=== PATIENT | female | born 1950 | race Caucasian/White ===

== ENCOUNTER 2020-02-01 11:05 | Emergency (ER) | payer MEDICARE, SELFPAY ==
--- NOTE | ~2020-02-01 | XR_ITS ---
EXAMINATION: XR lumbar spine min 4V DATE: 02/01/2020 12:20 INDICATION: Low back pain TECHNIQUE: Anteroposterior, lateral, and bilateral oblique views of the lumbar spine, and cone-down l ateral view of the lumbosacral junction were obtained. COMPARISON: None. FINDINGS: There is no fracture, dislocation, or subluxation. The vertebral body heights and alignment are normal. Minimal loss of intervertebral disc space height is present throughout the lumbar spine. Small degenerative osteophytes project from the anterior endplates of multiple vertebral bodies. Puneet cified atherosclerosis is noted. There is a moderate volume of colonic stool. Mild facet osteoarthrit is is noted. IMPRESSION: 1. Mild lumbar spondylosis without acute findings. Reviewed, dictated and finalized at location A.
[2020-02-01 11:14] VITALS: BP 147/66; PULSE 68; RESP 16; TEMP 36; O2SAT 100
[2020-02-01] MEDS: KETOROLAC (*BKC) 60 MG/2 ML VIAL 15 MG IM (12:14)
[2020-02-01] MEDS: diazePAM 5 MG TABLET PO (12:14)
--- NOTE | 2020-02-01 13:30 | ED.BACK ---
HPI - Back Pain/Injury General Chief Complaint: Back Pain/Injury <Elliott Mccain PA-C - Last Filed: 02/01/20 13:34> Stated Complaint: back pain yesterday <Elliott Mccain PA-C - Last Filed: 02/01/20 13:34> Time Seen by Provider: 02/01/20 11:25 <Elliott Mccain PA-C - Last Filed: 02/01/20 13:34> Source: patient and family <Elliott Mccain PA-C - Last Filed: 02/01/20 13:34> Mode of arrival: ambulatory <BRIE Nicholson Last Filed: 02/01/20 13:34> Limitations: no limitations <Elliott Mccain PA-C - Last Filed: 02/01/20 13:34> History of Present Illness HPI Narrative: Patient is a 69-year-old female who presents emergency department for evaluation of lower lumbar back pain across the lumbar region that began after leaning over to put on her pants today denies other injury or trauma or similar occurrence in the past has not taken anything for symptoms presents per private vehicle in no distress with normal gait denies any recent illness or other complaints <Elliott Mccain PA-C - Last Filed: 02/01/20 13:34> Related Data Allergies/Adverse Reactions: Allergies Allergy/AdvReac Type Severity Reaction Status Date / Time codeine Allergy Mild Flushing Verified 02/01/20 11:17 <Elliott Mccain PA-C - Last Filed: 02/01/20 13:34> Review of Systems Review of Systems: All systems reviewed & are unremarkable except as noted in HPI and below <Elliott Mccain PA-C - Last Filed: 02/01/20 13:34> PMFSH Past Medical History Medical History: Medical History (Updated 02/01/20 @ 13:32 by Elliott Mccain PA-C) Diabetes mellitus <Elliott Mccain PA-C - Last Filed: 02/01/20 13:34> Exam Narrative: Exam Narrative: GENERAL: Well-appearing, well-nourished, and in no acute distress. HEAD: Normocephalic, atraumatic. EYES: PERRLA and EOMI. ENT: Nares clear, no rhinorrhea or epistaxis. Mucous membranes moist. CHEST: Clear to auscultation. No respiratory distress. No wheezes rales or rhonchi HEART: Regular rate and rhythm. No murmur heard. EXTREMITIES: Normal range of motion. No edema. Tenderness across the lumbar spine no deformities noted SKIN: Warm, dry, no rash. NEURO: No focal deficits. Alert and oriented x3. Cranial nerves II through XII grossly intact PSYCH: Normal mood and affect. <Elliott Mccain PA-C - Last Filed: 02/01/20 13:34> Course Course Emergency Course: Patient in the room in no distress aware of case findings treatment plan and diagnosis agreeing to follow-up as directed or to return if symptoms worsen or concerns <Elliott Mccain PA-C - Last Filed: 02/01/20 13:34> Vital Signs Vital signs: Vital Signs Temperature 36.0 C L 02/01/20 11:14 Pulse Rate 68 02/01/20 11:14 Respiratory Rate 16 02/01/20 11:14 Blood Pressure 147/66 H 02/01/20 11:14 Pulse Oximetry 100 02/01/20 11:14 Temperature 36.0 C L 02/01/20 11:14 Pulse Rate 68 02/01/20 11:14 Respiratory Rate 16 02/01/20 11:14 Blood Pressure 147/66 H 02/01/20 11:14 Pulse Oximetry 100 02/01/20 11:14 <Elliott Mccain PA-C - Last Filed: 02/01/20 13:34> Vital Signs Temperature 36.0 C L 02/01/20 11:14 Pulse Rate 68 02/01/20 11:14 Respiratory Rate 16 02/01/20 11:14 Blood Pressure 147/66 H 02/01/20 11:14 Pulse Oximetry 100 02/01/20 11:14 Temperature 36.0 C L 02/01/20 11:14 Pulse Rate 68 02/01/20 11:14 Respiratory Rate 16 02/01/20 11:14 Blood Pressure 147/66 H 02/01/20 11:14 Pulse Oximetry 100 02/01/20 11:14 <Louann Magdaleno MD - Last Filed: 02/01/20 13:58> MDM - Back Pain/Injury MDM Narrative Medical decision making narrative: Medications as needed and prescribed. Limit lifting and bending. You may apply heat or cold to the area as needed. Follow up with your doctor for further care. Contact your doctor or return to the emergency department if you develop problems with bladder or bowel func
== END 2020-02-01 15:30 | disposition home or self-care (01) ==
PROVIDERS: Emergency Provider Emergency Medicine; PCP Internal Medicine
DX: S39.012A Strain of muscle, fascia and tendon of lower back, initial encounter (principal); E11.9 Type 2 diabetes mellitus without complications; X50.9XXA Other and unspecified overexertion or strenuous movements or postures, initial encounter
CPT/HCPCS: 72110; 96372; 99283; A9270; J1885

== ENCOUNTER 2022-12-22 15:55 | Observation (INO) | payer BC, MEDICARE, SELFPAY ==
[2022-12-22] VITALS (8 sets, daily range): BP systolic 106–163; BP diastolic 64–93; PULSE 99–125; RESP 20–26; TEMP 36.3–36.8; O2SAT 100; BMI 25.8
--- NOTE | ~2022-12-22 | XR_ITS ---
EXAMINATION: XR chest 2V 12/22/2022 17:38 INDICATION: Shortness of breath, nausea, vomiting and diarrhea PROCEDURE: 2 view chest COMPARISON: 08/27/2008 FINDINGS: The lungs are clear. The cardiomediastinal silhouette is within normal limits. There are no pleural effusions. There is no pneumothorax suspected. IMPRESSION: 1: NO ACUTE CARDIOPULMONARY DISEASE. Reviewed, dictated and finalized at location A.
--- NOTE | 2022-12-22 16:50 | ECG_ITS ---
Measurements Intervals [place] Rate: 120 P: 54 IN: 159 QRS: -73 QRSD: 84 T: 67 QT: 364 QTc: 515 Interpretive Statements SINUS TACHYCARDIA RSR' IN V1 OR V2, PROBABLY NORMAL VARIANT DELAYED PRECORDIAL R/S TRANSITION ABNORMAL ECG NO PREVIOUS ECG AVAILABLE FOR COMPARISON Electronically Signed On 12-22-2022 20:14:47 CDT by Guerrero Weller D.O.
[2022-12-22 17:08] LABS: Basophils Absolute Auto 0.1 K/mm3 (0.0-0.1); Basophils Percent Auto 0.8 % (0.2-1.2); Eosinophils Absolute Auto 0.1 K/mm3 (0-0.3); Eosinophils Percent Auto 1.9 % (0-4.4); Hematocrit 46.9 % (37.0-47.0); Hemoglobin 15.6 g/dL (12.0-15.0); Immature Granulocyte Absolute 0.03 K/mm3 (0.00-0.031); Immature Granulocyte Percent A 0.5 % (0-0.5); Lymphocytes Absolute Auto 1.03 K/mm3 (0.9-3.2); Lymphocytes Percent Auto 16.6 % (18.3-44.2); Mean Corpuscular HGB Conc 33.3 g/dl (32-36); Mean Corpuscular Hemoglobin 27.5 pg (26-34); Mean Corpuscular Volume 82.7 fl (80-100); Mean Platelet Volume 9.4 fl (7.4-10.4); Monocytes Absolute Auto 0.9 K/mm3 (0.1-0.6); Monocytes Percent Auto 13.7 % (2.6-8.5); Neutrophils Absolute Auto 4.1 K/mm3 (1.3-6.7); Neutrophils Percent Auto 66.5 % (45.5-73.1); Platelet Count Result 293 k/mm3 (150-375); Red Blood Count 5.67 M/mm3 (4.2-5.4); Red Cell Distribution Width 13.2 % (11.5-14.5); White Blood Count 6.2 K/mm3 (4.5-10.0)
[2022-12-22 17:19] LABS: Alanine Aminotransferase 42 U/L (6-35); Alkaline Phosphatase 176 U/L (38-126); Anion Gap 20 mmol/L (8-16); Aspartate Amino Transferase 67 U/L (14-36); Bilirubin,Total 0.9 mg/dL (0.2-1.3); Blood Urea Nitrogen 33 mg/dL (7-17); Calcium 9.8 mg/dL (8.4-10.2); Carbon Dioxide 21 mmol/L (22-30); Chloride 90 mmol/L (98-107); Estimated CRCL calculation 24 ml/min; Estimated Glomerular Filt Rate 32; Glucose 216 mg/dL (65-110); Potassium 3.6 mmol/L (3.4-5.0); Sodium 131 mmol/L (137-145)
[2022-12-22 17:43] LABS: Influenza A QL RT-PCR Negative (Negative); Influenza B QL RT-PCR Negative (Negative); SARS-CoV-2 RNA PCR Positive (Negative)
[2022-12-22] MEDS: SODIUM CHLORIDE 0.9% IV 500 ML 999 ML IV CONT ×2 (18:52→19:54)
--- NOTE | 2022-12-22 18:53 | ED.URI ---
HPI - URI/Sore Throat General Chief Complaint: Upper Respiratory Infection Stated Complaint: I've been sick Time Seen by Provider: 12/22/22 18:21 Source: patient Mode of arrival: ambulatory Limitations: no limitations History of Present Illness HPI Narrative: This is a 72 year old female that presents to the ER for cold symptoms. Present over the last couple of days. Reports cough, congestion, shortness of breath, vomiting, and diarrhea. She is COVID vaccinated. Denies fever, chest pain, abdominal pain, or lower extremity edema. Related Data Allergies Allergy/AdvReac Type Severity Reaction Status Date / Time codeine Allergy Mild Flushing Verified 02/01/20 11:17 Review of Systems Review of Systems: CONSTITUTIONAL: Denies fever ENT: Reports rhinorrhea, congestion CARDIOVASCULAR: Denies chest pain, or edema. RESPIRATORY: Reports cough and dyspnea. GASTROINTESTINAL: Reports nausea, vomiting and diarrhea. Denies abdominal pain NEUROLOGIC: Reports generalized weakness. All systems reviewed & are unremarkable except as noted in HPI and below PMFSH Past Medical History Medical History (Updated 12/22/22 @ 20:59 by Nesha Pandya PA-C) Diabetes mellitus History of brain cancer Social History Social History (Updated 12/22/22 @ 19:09 by Nesha Pandya PA-C) Smoking status: Never smoker Exam Narrative: GENERAL: Well-appearing, well-nourished, and in no acute distress. HEAD: Normocephalic, atraumatic. EYES: EOMI. ENT: Nares clear, no rhinorrhea or epistaxis. Mucous membranes dry. Oropharynx without tonsillar hypertrophy exudate or other lesions. Bilateral TMs pearly boone non-bulging NECK: Supple. No adenopathy or masses. CHEST: Clear to auscultation. No respiratory distress. No wheezes rales or rhonchi HEART: Regular rate and rhythm. No murmur heard. Normal peripheral pulses. ABDOMEN: Soft, nontender, nondistended, normal active bowel sounds. EXTREMITIES: Normal range of motion. No edema. SKIN: Warm, dry, no rash. NEURO: No focal deficits. Alert and oriented x3. PSYCH: Normal mood and affect Course Course Emergency Course: Patient was updated on workup and agrees with admission for further management Consultations Consultation #1: Spoke with Dr. Blanco about patient and workup who accepts admission Date: 12/22/22 Vital Signs Vital signs: Vital Signs Temperature 98.3 F 12/22/22 16:48 Pulse Rate 123 H 12/22/22 16:48 Respiratory Rate 20 12/22/22 16:48 Blood Pressure 119/64 12/22/22 16:48 Pulse Oximetry 100 12/22/22 16:48 Oxygen Delivery Room Air 12/22/22 16:48 Temperature 98.3 F 12/22/22 16:48 Pulse Rate 100 12/22/22 20:48 Respiratory Rate 26 H 12/22/22 20:48 Blood Pressure 144/90 H 12/22/22 20:48 Pulse Oximetry 100 12/22/22 20:48 Oxygen Delivery Room Air 12/22/22 18:51 MDM - URI/Sore Throat MDM Narrative Medical decision making narrative: Patient presents to the emergency department for cold symptoms present over the last couple days. Reporting cough, shortness of breath, vomiting, and diarrhea. Patient found to be COVID positive. She is vaccinated. Tachycardic upon arrival, this normalized with IV fluid administration. Oxygen saturation is normal on room air. CBC shows hemoconcentration. Metabolic panel also shows evidence of dehydration and acute kidney injury. Chest x-ray without acute cardiopulmonary abnormality. EKG shows QT prolongation, no acute ST changes or arrhythmias noted. Patient was updated on workup. Will be admitted for further management. Spoke with hospitalist about the patient and workup who accepts admission Differential Diagnosis Differential diagnosis: Likely upper respiratory infection, viral infection, bronchitis, influenza and other (COVID, pneumonia, PE) Lab Data Attestation: I reviewed the patient's lab results. 12/22/22 16:59 12/22/22 16:59 Labs: Lab Results 12/22/22 12/22/22 0
[2022-12-22 19:20] LABS: CRP 1.8 mg/dL (<1.0); Lactate Dehydrogenase 176 U/L (120-246)
[2022-12-22 19:21] LABS: INR 0.9; Prothrombin Time 12.9 Seconds (11.1-14.7)
[2022-12-22 19:22] LABS: Partial Thromboplastin Time 26.8 SECONDS (22.3-36.8)
[2022-12-22 19:33] LABS: D Dimer < 0.27 ug/mL (<0.48); Procalcitonin 0.3 ng/mL
--- NOTE | 2022-12-22 20:03 | PM.IMHP ---
H&P: HPI History of Present Illness Date/Time: 12/22/22 20:03 Chief Complaint: Shortness of breath Narrative: This is a 72-year-old female with past medical history significant for type 2 diabetes mellitus, hypertension, dyslipidemia, depression. Patient presents to the emergency room due to 1 week of generalized malaise, shortness of breath, poor appetite, nausea vomiting and diarrhea. Patient was found to have a positive COVID. Preliminary workup was significant for creatinine of 1.6 sodium 130 chloride 90 BUN 33 CK 267 ferritin 319 AST/ ALT/ alk phos 67/40/176 respectively. EXAMINATION: XR chest 2V 12/22/2022 17:38 INDICATION: Shortness of breath, nausea, vomiting and diarrhea PROCEDURE:? 2 view chest COMPARISON: 08/27/2008 FINDINGS: The lungs are clear.? The cardiomediastinal silhouette is within normal limits.? There are no pleural effusions.? There is no pneumothorax suspected.? IMPRESSION: 1:? NO ACUTE CARDIOPULMONARY DISEASE. Patient is been placed in observation for further evaluation management and treatment. Review of Systems Review of Systems: Shortness of breath, nausea vomiting diarrhea generalized malaise poor appetite Constitutional: Constitutional: Denies chills, Reports fatigue, Denies fever(s), Reports lethargy, Reports malaise and Denies night sweats Eyes: Eyes: Denies change in vision ENT: Denies dysphagia, Denies vertigo, Denies dizziness and Denies odynophagia Cardiovascular: Cardiovascular: Denies chest pain, Denies lightheadedness, Denies radiating jaw, neck or arm pain, Denies palpitations and Reports dyspnea Respiratory: Respiratory: Denies chest congestion, Denies cough, Denies excessive phlegm production and Reports dyspnea on exertion Gastrointestinal: Gastrointestinal: Denies dyspepsia, Denies heartburn, Reports diarrhea, Reports nausea and Reports vomiting Genitourinary: Genitourinary: Denies dysuria Musculoskeletal: Musculoskeletal: Reports myalgias Integumentary/Breasts: Skin/Breast: Denies rash Neurologic: Denies focal weakness and Denies Sensory deficit (Neuro) Psychiatric: Psychiatric: Reports no additional psychiatric complaints and Reports as per HPI Endocrine: Endocrine: Denies cold intolerance, Denies excessive sweating, Denies fatigue, Denies heat intolerance, Denies polyphagia, Denies polyuria and Denies palpitations Hematologic/Lymphatic: Hematologic/Lymphatic: Reports no additional hematologic/lymphatic complaints and Reports as per HPI Allergic/Immunologic: Allergic/Immunologic: Reports no additional allergic/immunologic complaints and Reports as per HPI FOR[facility]LY [facility] Past Medical History Medical History (Updated 12/23/22 @ 02:07 by Bipin Blanco MD) Diabetes mellitus History of brain cancer Family History Family History (Updated 12/22/22 @ 21:53 by Jaylin Pennington RN) Son Thymus cancer Myocardial infarct Father Esophageal cancer Pancreatic cancer Mother Cancer Social History Social History (Updated 12/22/22 @ 19:09 by Nesha Pandya PA-C) Smoking status: Never smoker Alcohol intake: never Substance use: never Lack of Transportation: No Lack of Food: Never True Current Housing: I Have Housing Concerned About Future Housing: No Difficulty Paying Gas/Electric Bills: No Difficulty Paying for Meds: No Currently Unemployed: No Education: High School Diploma/GED Difficulty w/ Childcare or Family Care: No Spiritual care concerns: No Meds Home Medications and Allergies Home Medications Medication Instructions Recorded Confirmed Type dapagliflozin propanediol 10 mg 10 mg PO DAILY 12/22/22 12/22/22 History tablet glimepiride 1 mg tablet 0.5 mg PO DAILY 12/22/22 12/22/22 History hydrochlorothiazide 12.5 mg capsule 12.5 mg PO DAILY 12/22/22 12/22/22 History losartan 100 mg tablet 100 mg PO DAILY 12/22/22 12/22/22 History metformin 500 mg tablet 1,000 mg PO BID 12/22/22 12/22/22 History ros
--- NOTE | 2022-12-22 21:41 | ADMGEN ---
This patient, Perlita Luevano, was admitted to IMU Room 207-01. Patient/family oriented to hospital policies and general routines including ID bracelet, bed and alarms, visiting hours, pain management, procedures, bathroom and other care routines, personal items, smoking policy, room service/diet, and visiting hours. Information on how to activate the Rapid Response Team has been discussed. Patient/Family are encouraged to report perceived risks to care and to ask questions if they do not understand what they are told or what they should do.
[2022-12-22 21:50] LABS: Glucose Point of Care 139 mg/dl (65-105)
[2022-12-22 22:09] LABS: Creatine Kinase 267 U/L (30-135)
[2022-12-23] VITALS (9 sets, daily range): BP systolic 106–135; BP diastolic 62–76; PULSE 95–112; RESP 16–20; TEMP 36.4–36.8; O2SAT 93–100
[2022-12-23 04:28] LABS: Basophils Percent Auto 0.6 % (0.2-1.2); Eosinophils Percent Auto 0.2 % (0-4.4); Hematocrit 41.3 % (37.0-47.0); Hemoglobin 13.6 g/dL (12.0-15.0); Immature Granulocyte Absolute 0.01 K/mm3 (0.00-0.031); Immature Granulocyte Percent A 0.2 % (0-0.5); Lymphocytes Absolute Auto 0.97 K/mm3 (0.9-3.2); Lymphocytes Percent Auto 20.4 % (18.3-44.2); Mean Corpuscular HGB Conc 32.9 g/dl (32-36); Mean Corpuscular Hemoglobin 27.4 pg (26-34); Mean Corpuscular Volume 83.1 fl (80-100); Mean Platelet Volume 9.6 fl (7.4-10.4); Monocytes Absolute Auto 0.8 K/mm3 (0.1-0.6); Monocytes Percent Auto 16.8 % (2.6-8.5); Neutrophils Absolute Auto 2.9 K/mm3 (1.3-6.7); Neutrophils Percent Auto 61.8 % (45.5-73.1); Platelet Count Result 224 k/mm3 (150-375); Red Blood Count 4.97 M/mm3 (4.2-5.4); White Blood Count 4.8 K/mm3 (4.5-10.0)
[2022-12-23 04:44] LABS: Anion Gap 9 mmol/L (8-16); Blood Urea Nitrogen 30 mg/dL (7-17); Calcium 8.9 mg/dL (8.4-10.2); Carbon Dioxide 25 mmol/L (22-30); Chloride 94 mmol/L (98-107); Estimated CRCL calculation 30 ml/min; Estimated Glomerular Filt Rate 40; Glucose 178 mg/dL (65-110); Potassium 3.4 mmol/L (3.4-5.0); Sodium 128 mmol/L (137-145)
[2022-12-23 08:05] LABS: Glucose Point of Care 187 mg/dl (65-105)
[2022-12-23] MEDS: ENOXAPARIN 30 MG/0.3 ML SYRINGE SUB-Q (10:37)
--- NOTE | 2022-12-23 11:30 | PM.IMPN ---
Progress Note: A&P Assessment and Plan (1) COVID-19: Code(s): U07.1 - COVID-19 Status: Acute Assessment and Plan: Patient placed in IMU Supportive care Continue to monitor On room air (2) QT prolongation: Code(s): R94.31 - Abnormal electrocardiogram [ECG] [EKG] Status: Acute Assessment and Plan: Continue to monitor Holding venlafaxine (3) DESTINI (acute kidney injury): Code(s): N17.9 - Acute kidney failure, unspecified Status: Acute Assessment and Plan: Likely to be pre renal azotemia Holding hydrochlorothiazide (4) T2DM (type 2 diabetes mellitus): Code(s): E11.9 - Type 2 diabetes mellitus without complications Status: Acute Assessment and Plan: Holding metformin Holding glimepiride Holding dapaglifozin Insulin sliding scale as needed Subjective Date/time seen: 12/23/22 11:30 Interval history: No new complaints Exam Narrative: Patient is laying in a stretcher Const: General: comfortable, no acute distress, well developed, alert, awake, average body habitus and other (Well-appearing) Nutritional Appearance: average body habitus Orientation/consciousness: patient oriented x3 HENMT: Head: normal to inspection, normocephalic and atraumatic Ears: hearing grossly normal bilaterally Face/Nose/Sinus: normal facial exam Face and sinus: normal facial exam Eyes: General: appearance normal, both eyes and all related structures Pupils: Equal, round and reactive pupils present EOM: EOMs intact bilaterally Neck: Neck: full ROM, no lymphadenopathy and no JVD Thyroid: thyroid normal Lymphatic: no lymphadenopathy noted Resp: Effort & Inspection: normal respiratory effort and able to speak in complete sentences Auscultation: clear to auscultation bilaterally Cardio: Jugular venous distension: no JVD Rate: regular rate Rhythm: regular rhythm Heart sounds: S1 normal heart sound present and S2 normal heart sound present : General: Yes deferred Skin: Rashes: no rashes Wounds: no wounds Neuro: General: patient oriented x3 and CN's II-XI intact bilaterally Cranial nerves: Yes CN's II-XII intact bilaterally and Yes Equal, round and reactive pupils present Cognition (Neuro): normal cognition Speech: normal speech Gait exam (Neuro): Normal gait present Motor exam (neuro): 5/5 motor strength present throughout Sensory Exam: No Sensory deficit (Neuro) Extrem: General: normal to inspection, full ROM, no joint enlargement and no pedal edema Objective Data Vital Signs Vital Signs: Vital Signs - 24 hr 12/22/22 16:48 12/22/22 17:47 12/22/22 18:40 Temperature 98.3 F Pulse Rate 123 H 125 H Respiratory Rate 20 Blood Pressure 119/64 106/65 Pulse Oximetry 100 100 Oxygen Delivery Room Air Room Air 12/22/22 18:51 12/22/22 20:48 12/22/22 21:20 Temperature Pulse Rate 119 H 100 99 Respiratory Rate 25 H 26 H 20 Blood Pressure 118/74 144/90 H 163/93 H Pulse Oximetry 100 100 100 Oxygen Delivery Room Air 12/22/22 21:37 12/22/22 22:00 12/22/22 22:00 Temperature 97.3 F L Pulse Rate 106 H 101 H Respiratory Rate 20 Blood Pressure 145/80 H Pulse Oximetry 100 100 Oxygen Delivery Room Air 12/22/22 23:47 12/23/22 00:00 12/23/22 02:00 Temperature 97.6 F Pulse Rate 99 95 106 H Respiratory Rate 20 Blood Pressure 152/64 H Pulse Oximetry 100 Oxygen Delivery 12/23/22 00:00 12/23/22 04:00 12/23/22 04:00 Temperature Pulse Rate 101 H Respiratory Rate Blood Pressure Pulse Oximetry 100 100 Oxygen Delivery Room Air Room Air 12/23/22 04:00 12/23/22 06:00 12/23/22 08:00 Temperature 97.6 F 98.2 F Pulse Rate 106 H 103 H 107 H Respiratory Rate 20 16 Blood Pressure 135/76 121/71 Pulse Oximetry 95 94 Oxygen Delivery Intake/Output Intake/Output: Intake & Output 12/20/22 12/21/22 12/22/22 12/23/22 23:59 23:59 23:59 23:59 Intake Total 1000 400 Output Total 700 Ba
[2022-12-23 13:01] LABS: Glucose Point of Care 288 mg/dl (65-105)
[2022-12-23 16:40] LABS: Glucose Point of Care 172 mg/dl (65-105)
[2022-12-23] MEDS: VENLAFAXINE HCL XR 75 MG CAP.ER.24H PO (17:31)
[2022-12-24] VITALS: BP 110/72; PULSE 92; RESP 20; TEMP 36.5; O2SAT 100
[2022-12-24 00:10] LABS: Glucose Point of Care 177 mg/dl (65-105)
[2022-12-24 04:00] VITALS: BP 121/73; PULSE 102; RESP 20; TEMP 36.4; O2SAT 91
[2022-12-24 08:18] LABS: Glucose Point of Care 205 mg/dl (65-105)
[2022-12-24 08:53] LABS: Anion Gap 10 mmol/L (8-16); Blood Urea Nitrogen 21 mg/dL (7-17); Carbon Dioxide 27 mmol/L (22-30); Chloride 93 mmol/L (98-107); Estimated CRCL calculation 35 ml/min; Estimated Glomerular Filt Rate 49; Glucose 189 mg/dL (65-110); Potassium 3.1 mmol/L (3.4-5.0); Sodium 130 mmol/L (137-145)
[2022-12-24] MEDS: VENLAFAXINE HCL XR 75 MG CAP.ER.24H PO (09:44)
[2022-12-24] MEDS: ENOXAPARIN 30 MG/0.3 ML SYRINGE SUB-Q (09:44)
--- NOTE | 2022-12-24 11:28 | PM.DS ---
DS: Admitting Diagnosis Discharge Date December 24, 2022 Admitting Diagnosis COVID DS: Discharge Diagnosis Discharge Diagnosis (1) COVID-19: Code(s): U07.1 - COVID-19 Status: Acute Assessment and Plan: Patient placed in IMU Supportive care Continue to monitor On room air (2) QT prolongation: Code(s): R94.31 - Abnormal electrocardiogram [ECG] [EKG] Status: Acute Assessment and Plan: Continue to monitor Holding venlafaxine (3) DESTINI (acute kidney injury): Code(s): N17.9 - Acute kidney failure, unspecified Status: Acute Assessment and Plan: Likely to be pre renal azotemia Holding hydrochlorothiazide (4) T2DM (type 2 diabetes mellitus): Code(s): E11.9 - Type 2 diabetes mellitus without complications Status: Acute Assessment and Plan: Holding metformin Holding glimepiride Holding dapaglifozin Insulin sliding scale as needed DS: Summary Hospital Course Hospital Course: Patient is admitted for COVID. Treated conservatively and did well. She can be discharged. Time Spent with Patient Time attestation: Total time spent providing and/or coordinating discharge services: Exam Narrative: Patient is laying in a stretcher Const: General: comfortable, no acute distress, well developed, alert, awake, average body habitus and other (Well-appearing) Nutritional Appearance: average body habitus Orientation/consciousness: patient oriented x3 HENMT: Head: normal to inspection, normocephalic and atraumatic Ears: hearing grossly normal bilaterally Face/Nose/Sinus: normal facial exam Face and sinus: normal facial exam Eyes: General: appearance normal, both eyes and all related structures Pupils: Equal, round and reactive pupils present EOM: EOMs intact bilaterally Neck: Neck: full ROM, no lymphadenopathy and no JVD Thyroid: thyroid normal Lymphatic: no lymphadenopathy noted Resp: Effort & Inspection: normal respiratory effort and able to speak in complete sentences Auscultation: clear to auscultation bilaterally Cardio: Jugular venous distension: no JVD Rate: regular rate Rhythm: regular rhythm Heart sounds: S1 normal heart sound present and S2 normal heart sound present : General: Yes deferred Skin: Rashes: no rashes Wounds: no wounds Neuro: General: patient oriented x3 and CN's II-XI intact bilaterally Cranial nerves: Yes CN's II-XII intact bilaterally and Yes Equal, round and reactive pupils present Cognition (Neuro): normal cognition Speech: normal speech Gait exam (Neuro): Normal gait present Motor exam (neuro): 5/5 motor strength present throughout Sensory Exam: No Sensory deficit (Neuro) Extrem: General: normal to inspection, full ROM, no joint enlargement and no pedal edema DS: Data Data Completed and Pending Labs on day of discharge: Labs from last 24 hours 12/24/22 12/24/22 12/23/22 08:27 08:06 21:03 Sodium 130 L Potassium 3.1 L Chloride 93 L Carbon Dioxide 27 Anion Gap 10 BUN 21 H Creatinine 1.10 H Estim Creat Clear Calc 35 Estimated GFR 49 L Glucose 189 H POC Capillary Glucose 205 H 177 H Calcium 9.0 12/23/22 12/23/22 16:32 11:53 Sodium Potassium Chloride Carbon Dioxide Anion Gap BUN Creatinine Estim Creat Clear Calc Estimated GFR Glucose POC Capillary Glucose 172 H 288 H Calcium Discharge Plan Discharge Attending physician on discharge: Boyd Marie Discharging Clinician: Boyd Marie Patient Disposition: Home, Self-Care Activity: as tolerated Diet: as tolerated Patient Instructions: Antibiotic Form, Acute Kidney Injury (DC), Pain Management in Older Adults (GEN), COVID-19 (Coronavirus Disease 2019) (DC), COVID-19: Slow the Coronavirus Spread (DC) Stand Alone Forms: General Discharge Information Follow-up/Referrals: Luis Enrique,Dalton Luu MD [Primary Care Provider] - Discharge Medications:
--- NOTE | 2022-12-24 14:22 | PC.NURSE ---
Pt transferred up to our floor yesterday 12/23. Pt is A&O4 and has participated and contributed in plan of care. Pt denies any pain. Pt discharged home with self care. Pt was wheeled out to friends car by SNT. Pt was monitored for any changes in status while here. Pt IV was removed tip intact. Pt tolerated well.
== END 2022-12-24 13:20 | disposition home or self-care (01) ==
LOC: ANHED 20:58 → ANHIMU 12-23 01:13 → ANH3MEDSUR 12-23 20:24 → ANHIMU 12-26 08:56
PROVIDERS: Emergency Medicine; Admitting Provider Internal Medicine; Emergency Provider Physician Assistant; PCP Internal Medicine; Visit Provider Chiropractor
DX: U07.1 COVID-19 (principal); R94.31 Abnormal electrocardiogram [ECG] [EKG]; N17.9 Acute kidney failure, unspecified; E11.9 Type 2 diabetes mellitus without complications; J34.89 Other specified disorders of nose and nasal sinuses; R53.1 Weakness; I10 Essential (primary) hypertension; R63.0 Anorexia; Z68.25 Body mass index [BMI] 25.0-25.9, adult; E78.5 Hyperlipidemia, unspecified; F32.A Depression, unspecified; R00.0 Tachycardia, unspecified; R79.89 Other specified abnormal findings of blood chemistry; R74.8 Abnormal levels of other serum enzymes; R74.01 Elevation of levels of liver transaminase levels; Z79.84 Long term (current) use of oral hypoglycemic drugs; Z79.899 Other long term (current) drug therapy; Z85.841 Personal history of malignant neoplasm of brain
CPT/HCPCS: 36415; 71046; 80048; 80053; 82550; 82728; 82948; 83615; 84145; 85025; 85380; 85610; 85730; 86140; 87636; 93005; 96360; 96361; 96372; 99285; A9270; G0378; J1650; J7040